=== PATIENT | female | born 1995 | race Caucasian/White ===

== ENCOUNTER 2021-11-08 21:13 | Emergency (ER) | payer BC ==
[2021-11-08] MEDS ORDERED: predniSONE 10 MG Tab PO ONE (21:48)
== END 2021-11-08 22:25 | disposition home or self-care (01) ==
LOC: JP.ED 21:13
DX: M06.9 Rheumatoid arthritis, unspecified (principal); Z79.52 Long term (current) use of systemic steroids; Z91.030 Bee allergy status; Z88.8 Allergy status to other drugs, medicaments and biological substances; Z91.048 Other nonmedicinal substance allergy status; Z79.899 Other long term (current) drug therapy
CPT/HCPCS: 99281; J7512